=== PATIENT | female | born 1980 | race African-American/Black ===

== ENCOUNTER 2018-05-03 18:49 | Emergency (ER) | payer MEDICAID ==
[~2018-05-03] VITALS: Ht 172.7 cm; Wt 71.2 kg
[~2018-05-03 18:49] MED LIST: BACTRIM DS TAB1 EAC1 ORAL; IBUPROFEN800 MG ORAL; KEFLEX500 MG ORAL; NKM; TRAMADOL HCL50 MG ORAL
[2018-05-03] MEDS ORDERED: Azithromycin 250mg tab ORAL ONE (19:15)
[2018-05-03] MEDS ORDERED: Lidocaine 1% MPF 10mg/ml 5ml INJ ONE (19:15)
--- NOTE | 2018-05-03 19:20 | Emergency Room Report ---
History of Present Illness General Chief Complaint: Female Urogenital Problems Source: Patient Present Illness HPI 38-year-old female presents to the emergency department requesting treatment for STDs. Patient states that her partner is being treated for Chlamydia gonorrhea and she wants to be treated as well. Patient denies vaginal discharge , dysuria, external genital lesions, swollen tender lymph nodes, joint pain, fevers, chills or abdominal pain. Patient denies . Allergies: Coded Allergies: No Known Allergies (Unverified , 10/01/15) Patient History Past Medical History: see triage record Past Surgical History: none Pertinent Family History: none Last Menstrual Period: 04/22/18 Now: No : 3 Para: 1 Reviewed Nursing Documentation: PMH: Agreed; PSxH: Agreed Nursing Documentation-PMH Past Medical History: No History, Except For Review of Systems All Other Systems: negative except mentioned in HPI Physical Exam Vital Signs Date Time Temp Pulse Resp B/P (MAP) Pulse Ox O2 Delivery O2 Flow Rate FiO2 05/03/18 18:57 97.9 83 20 147/85 98 Room Air 97.9 Sp02 EP Interpretation: reviewed, normal General Appearance: no apparent distress, alert, GCS 15, non-toxic Head: normocephalic, atraumatic ENT: hearing grossly normal, normal voice Neck: full range of motion Respiratory: lungs clear, normal breath sounds, speaking full sentences Cardiovascular #1: regular rate, rhythm Gastrointestinal: non tender Genitourinary: normal inspection, no CVA tenderness, deferred - pelvic deferred. Musculoskeletal: back normal, gait/station normal, normal range of motion, non- tender Neurologic: alert, oriented x3, responsive, motor strength/tone normal, sensory intact, speech normal, grossly normal Psychiatric: judgement/insight normal Skin: normal color, no rash, warm/dry, well hydrated Medical Decision Making PA Attestation Dr. arroyo is my supervising Physician whom patient management has been discussed with. Diagnostic Impression: Primary Impression: Contact with or exposure to venereal diseases ER Course 38-year-old female presents to the emergency department requesting treatment for STDs. Patient states that her partner is being treated for Chlamydia gonorrhea and she wants to be treated as well. Patient denies vaginal discharge , dysuria, external genital lesions, swollen tender lymph nodes, joint pain, fevers, chills or abdominal pain. Patient denies . Ddx considered but are not limited to UTi , STI, G & C, trichomonas, Vaginitis , cervicitis, bartholins gland cyst or cellulitis. Vital signs: are WNL, pt. is afebrile H&PE are most consistent with contact or exposure to venereal diseases. ORDERS: - None at this time ED INTERVENTIONS: -250mg Rocephin IM -1G Azithromycin PO DISCHARGE: At this time pt. is stable for d/c to home. Will provide printed patient care instructions, and any necessary prescriptions. Care plan and follow up instructions have been discussed with the patient prior to discharge. Last Vital Signs Date Time Temp Pulse Resp B/P (MAP) Pulse Ox O2 Delivery O2 Flow Rate FiO2 05/03/18 18:57 97.9 83 20 147/85 98 Room Air 97.9 Disposition: HOME, SELF-CARE Condition: Stable Patient Instructions: Chlamydia, Female, [id number], Gonorrhea Additional Instructions: Refrain from intercourse for 5-7 days for antibiotics to take full effect. Follow up with a Primary Care Provider in 3-5 days, even if your symptoms have resolved. --Please review list of primary care clinics, if you do not already have a primary care provider Return sooner to ED if new symptoms occur, or current symptoms become worse. - Please note that this Emergency Department Report was dictated using [employer] technology software, occasionally this can lead to erroneous entry secondary to interpretation by the dictation equipment. Catherine Monroy May 03, 2018 19:20
[2018-05-03 19:43] VITALS: BP 147/85
== END 2018-05-03 19:43 | disposition home or self-care (01) ==
LOC: EMR 19:20
DX: Z20.2 Contact with and (suspected) exposure to infections with a predominantly sexual mode of transmission (principal)
CPT/HCPCS: 96372; 99283; J0696; Q0144

== ENCOUNTER 2018-07-08 19:56 | Emergency (ER) | payer MEDICAID ==
[~2018-07-08] VITALS: Ht 172.7 cm; Wt 71.2 kg
[2018-07-08 20:00] VITALS: BP 143/94
[2018-07-08] MEDS ORDERED: Lidocaine 1% MPF 10mg/ml 5ml INJ ONE (20:30)
[2018-07-08] MEDS ORDERED: Azithromycin 250mg tab ORAL ONE (20:30)
[2018-07-08 20:39] LABS: APPEARANCE,URINE CLEAR; BILIRUBIN, URINE NEGATIVE (NEGATIVE); COLOR,URINE PALE YELLOW; GLUCOSE, URINE (UA) NEGATIVE (NEGATIVE); KETONES,URINE NEGATIVE (NEGATIVE); LEUKOCYTE ESTERASE ,URINE NEGATIVE (NEGATIVE); NITRITE,URINE NEGATIVE (NEGATIVE); PH,URINE 6.5 (4.5-8.0); PROTEIN,URINE 1+ (NEGATIVE); UROBILINOGEN,URINE NORMAL (NORMAL)
[2018-07-08 20:58] VITALS: BP 143/94
--- NOTE | 2018-07-08 21:08 | Emergency Room Report ---
History of Present Illness General Chief Complaint: Female Urogenital Problems Source: Patient Present Illness HPI Patient has a history of STDs. Patient states that she is still with the same partner. Her partner is currently positive for gonorrhea and being treated. Patient wants treatment as well. Patient denies any fever chest pain shortness breath. She denies any vaginal discharges time. Denies any dysuria or urinary frequency. No other complaint are noted. No other modifying factors. No other associated signs and symptoms. No other complaints were noted. Allergies: Coded Allergies: No Known Allergies (Unverified , 07/08/18) Patient History Past Medical History: other - STD Past Surgical History: none Pertinent Family History: none Social History: Denies: smoking, alcohol use, drug use Last Menstrual Period: 06/23/2018 Now: No Reviewed Nursing Documentation: PMH: Agreed; PSxH: Agreed Nursing Documentation-PMH Past Medical History: No Stated History Review of Systems All Other Systems: negative except mentioned in HPI Physical Exam Vital Signs Date Time Temp Pulse Resp B/P (MAP) Pulse Ox O2 Delivery O2 Flow Rate FiO2 07/08/18 19:59 98.3 79 16 143/94 99 Room Air 98.2 Sp02 EP Interpretation: reviewed, normal General Appearance: normal inspection, well appearing, no apparent distress, alert Head: atraumatic Eyes: bilateral eye normal inspection ENT: normal ENT inspection, hearing grossly normal, normal voice Neck: normal inspection, full range of motion, supple, no bony tend Respiratory: normal inspection, lungs clear, normal breath sounds, no respiratory distress, no retraction, no wheezing Cardiovascular #1: regular rate, rhythm, no edema Gastrointestinal: normal inspection, normal bowel sounds, non tender, soft, no guarding, no hernia Genitourinary: no CVA tenderness Musculoskeletal: normal inspection, back normal, normal range of motion Neurologic: normal inspection, alert, responsive, speech normal Psychiatric: normal inspection, judgement/insight normal, mood/affect normal Skin: normal inspection, normal color, no rash Medical Decision Making Diagnostic Impression: Primary Impression: STD (female) ER Course Patient resistance emergency department today with history of STD and current exposure to STD. I felt that was reasonable treated patient. Patient urine test was negative for Trichomonas patient declined Flagyl. Patient's urine test was also negative. Patient was given one dose of Rocephin and Zithromax recommend close outpatient follow-up restraint from sexual interactionfor 2 weeks.Patient is advised to follow up with primary doctor in 2- 3 days and return the emergency room for any worsening symptoms and as needed. Labs Test 07/08/18 20:15 Urine Color Pale yellow Urine Appearance Clear Urine pH 6.5 (4.5-8.0) Urine Specific Adams 1.020 (1.005-1.035) Urine Protein 1+ (NEGATIVE) Urine Glucose (UA) Negative (NEGATIVE) Urine Ketones Negative (NEGATIVE) Urine Occult Blood Negative (NEGATIVE) Urine Nitrite Negative (NEGATIVE) Urine Bilirubin Negative (NEGATIVE) Urine Urobilinogen Normal MG/DL (NORMAL) Urine Leukocyte Esterase Negative (NEGATIVE) Urine RBC 0-2 /HPF (0 - 2) Urine WBC 0-2 /HPF (0 - 2) Urine Squamous Epithelial Cells Few /LPF (NONE/OCC) Urine Bacteria Few /HPF (NONE) Urine HCG, Qualitative Negative (NEGATIVE) Last Vital Signs Date Time Temp Pulse Resp B/P (MAP) Pulse Ox O2 Delivery O2 Flow Rate FiO2 07/08/18 20:58 98.2 78 16 143/94 99 Room Air 98.2 Status: improved Disposition: HOME, SELF-CARE Condition: Stable Patient Instructions: Gonorrhea Philip Roberts MD Jul 08, 2018 21:08
== END 2018-07-08 20:59 | disposition home or self-care (01) ==
LOC: EMR 20:35
DX: A64 Unspecified sexually transmitted disease (principal)
CPT/HCPCS: 81003; 81025; 96372; 99283; J0696; Q0144

== ENCOUNTER 2019-10-13 05:30 | Emergency (ER) | payer MEDICAID ==
[~2019-10-13] VITALS: Ht 172.7 cm; Wt 72.6 kg
[2019-10-13 05:40] VITALS: BP 120/78
--- NOTE | 2019-10-13 05:40 | NUR ---
ED Nurse Note: Pt walked in to ED C/O swelling to upper and lower lip since saturday morning. pt woke up ealier today with swelling to facial area. pt has vbeen taking benadryl at home. pt is alert x4.
--- NOTE | 2019-10-13 05:48 | Emergency Room Report ---
History of Present Illness General Chief Complaint: Allergic Reaction Source: Patient Present Illness HPI Patient presents with complaints of swelling of her facial area upper and lower eyelids lips Patient also felt that her hands have become more swollen initially had the symptoms yesterday morning She took some Benadryl it did appear to improve somewhat however this morning she feels that the swelling had worsened Denies any shortness of breath denies any difficulty breathing she does have itching of her hands and facial area Denies any chest pain denies any vomiting Allergies: Coded Allergies: No Known Allergies (Unverified , 07/08/18) Patient History Past Medical History: see triage record Last Menstrual Period: 09/26/19 Now: No : 3 Para: 1 Reviewed Nursing Documentation: PMH: Agreed; PSxH: Agreed Nursing Documentation-PMH Past Medical History: No Stated History Review of Systems All Other Systems: negative except mentioned in HPI Physical Exam Vital Signs Date Time Temp Pulse Resp B/P (MAP) Pulse Ox O2 Delivery O2 Flow Rate FiO2 10/13/19 05:34 98.2 96 19 117/78 (91) 98 Room Air Sp02 EP Interpretation: reviewed, normal General Appearance: well appearing, no apparent distress Head: normocephalic, atraumatic Eyes: bilateral eye PERRL, bilateral eye EOMI, bilateral eye other - Puffiness noted both upper and lower eyelids I cannot appreciate any swelling on the lips however subjectively patient does report sensation of swelling however no obvious, angioedema ENT: hearing grossly normal, normal pharynx, TMs + canals normal, uvula midline Neck: full range of motion, supple, no meningismus, no bony tend Respiratory: lungs clear, normal breath sounds, no rhonchi, no respiratory distress, no retraction, no accessory muscle use Cardiovascular #1: normal peripheral pulses, regular rate, rhythm, no edema, no gallop, no JVD, no murmur Gastrointestinal: normal bowel sounds, non tender, soft, no mass, no organomegaly, non-distended, no guarding, no hernia, no pulsatile mass, no rebound Genitourinary: no CVA tenderness Musculoskeletal: normal inspection Neurologic: oriented x3, responsive, evening sitter III-XII nml as tested, motor strength/ tone normal, sensory intact Psychiatric: mood/affect normal Skin: other - Facial swelling as noted above, I cannot appreciate any obvious edema in the hands or any other dermatitis Lymphatic: normal inspection, no adenopathy Medical Decision Making Diagnostic Impression: Primary Impression: Allergic reaction ER Course Patient appears to be having a reaction Unclear exactly the etiology of this denies any recent change in hair chemicals denies any Change in washing detergent she reports that she recently threw her bed frame out and was sleeping a little bit lower to the ground Patient otherwise has acute intervention performed in the ER with oral medications there continues not to be any Effect on the patient's airway and will have initial conservative outpatient trial Last Vital Signs Date Time Temp Pulse Resp B/P (MAP) Pulse Ox O2 Delivery O2 Flow Rate FiO2 10/13/19 05:34 98.2 96 19 117/78 (91) 98 Room Air Status: improved Disposition: HOME, SELF-CARE Condition: Improved Scripts Famotidine* (Pepcid 20mg tablet*) 20 Mg Tablet 20 MG ORAL DAILY, #12 TAB 0 Refills Prov: Shereen Connors DO 10/13/19 Diphenhydramine Hcl* (BENADRYL*) 25 Mg Capsule 25 MG ORAL Q6H PRN for Itching for 7 Days, CAP Prov: Shereen Connors DO 10/13/19 Methylprednisolone (Methylprednisolone*) 4MG Dspk 4 MG ORAL DIRECTED for 6 Days, #21 EA 0 Refills Day 1: Two tablets before breakfast, one after lunch, one after dinner, and two at bedtime. If started late in the day, take all six tablets at once or divide into two or three doses, unless otherwise directed by prescriber. Day 2: One tablet before breakfast, one after lunch, one after dinner, and two at bedtime Day 3: One tablet before breakfast, one after lunch, one after dinner, and one at bedtime Day 4: One tablet before breakfast, one after lunch, and one at bedtime Day 5: One tablet before breakfast and one at bedtime Day 6: One tablet before breakfast Prov: Shereen Connors DO 10/13/19 Additional Instructions: Patient is provided with the discharge instructions notified to follow up with primary doctor in the next 2-3 days otherwise return to the er with any worsening symptoms. Please note that this report is being documented using [employer] technology. This can lead to erroneous entry secondary to incorrect interpretation by the dictating instrument. Shereen Connors DO Oct 13, 2019 05:48
[2019-10-13] MEDS ORDERED: BENADRYL25 MG ORAL (05:49)
[2019-10-13] MEDS ORDERED: MEDROL DOSEPAK4 MG ORAL (05:49)
[2019-10-13] MEDS ORDERED: FAMOTIDINE20 MG ORAL (05:49)
[2019-10-13 06:00] VITALS: BP 118/80
--- NOTE | 2019-10-13 06:00 | NUR ---
ER DISCHARGE NOTE: Patient is cleared to be discharged per ERMD, pt is aox4, on room air, with stable vital signs. pt was given dc and prescription instructions, pt was able to verbalize understanding, pt id band removed without complications. pt is able to ambulate with steady gait. pt took all belongings.
== END 2019-10-13 06:00 | disposition home or self-care (01) ==
LOC: EMR 05:59
DX: T78.40XA Allergy, unspecified, initial encounter (principal); X58.XXXA Exposure to other specified factors, initial encounter
CPT/HCPCS: J7512; Z7502; 99282

== ENCOUNTER 2019-10-16 16:59 | Emergency (ER) | payer MEDICAID ==
[~2019-10-16] VITALS: Ht 172.7 cm; Wt 72.6 kg
[~2019-10-16 16:59] MED LIST changes: +BENADRYL25 MG ORAL; +FAMOTIDINE20 MG ORAL; +MEDROL DOSEPAK4 MG ORAL
--- NOTE | 2019-10-16 17:11 | NUR ---
Pt walked in to ED c/o hives and rash on bilateral hands and feet. Pt is alert and orientedx4. Pt denies numbness, tingling, and pain at the moment. O
[2019-10-16 17:12] VITALS: BP 148/87
[2019-10-16] MEDS ORDERED: ZYRTEC10 MG ORAL (17:24)
--- NOTE | 2019-10-16 17:32 | Emergency Room Report ---
History of Present Illness General Chief Complaint: General Complaint Source: Patient Present Illness HPI Disclaimer: Please note that this report is being documented using [employer] technology. This can lead to erroneous entry secondary to incorrect interpretation by the dictating instrument. HPI: 39-year-old female presents for evaluation of itching and facial swelling. She was seen in the emergency department 10/13 for an allergic reaction and similar symptoms. She was discharged on a steroid taper, famotidine, Benadryl with intermittent improvement in her symptoms. She states she has recurrent itching over the extremities without rash or urticaria. She noted intermittent swelling of her upper lip but currently denies. She denies any swelling of the tongue or throat and had no respiratory symptoms. She is most concerned over her persistent itching. Denies any excoriations, rash, bleeding. She has not yet followed up with her doctor. No history of allergies. Cannot recall a specific trigger allergen that she has recently been exposed to. She washed her linens, changed her detergent. No recent changes in her food patterns. No other symptoms reported. PMH: Denies PSH: Denies Allergies: None known Social Hx: Denies drug or alcohol abuse Allergies: Coded Allergies: No Known Allergies (Unverified , 07/08/18) Patient History Last Menstrual Period: 09/26/19 Nursing Documentation-PMH Past Medical History: No Stated History Review of Systems All Other Systems: negative except mentioned in HPI Physical Exam Vital Signs Date Time Temp Pulse Resp B/P (MAP) Pulse Ox O2 Delivery O2 Flow Rate FiO2 10/16/19 17:02 99.0 83 18 152/93 (112) 97 Room Air 10/16/19 17:12 97 General: Awake and alert, no acute distress HEENT: NC/AT. EOMI. no periorbital edema, no buccal edema, uvula is midline, no retropharyngeal edema, erythema. No wheezing or stridor. Neck: Supple, trachea midline Cardiovascular: RRR. S1 and S2 normal. No murmur appreciated Resp: Normal work of breathing. No cough, wheezing or crackles appreciated Abdomen: Abdomen is soft, nondistended. Nontender Skin: Intact. No abrasions, laceration or rash over the exposed skin MSK: Normal tone and bulk. Moving all extremities. No obvious deformity. Neuro: Awake and alert. Mentating appropriately. Medical Decision Making Diagnostic Impression: Primary Impression: Itching Additional Impression: Allergic reaction ER Course 39-year female presents for evaluation of persistent itching 3 days after she was diagnosed with an allergic reaction. She is currently taking and about to finish her steroid taper and continues to use Benadryl and famotidine. She states she has intermittent relief however the itching continues. She has no signs of anaphylaxis and is otherwise in her usual state of health. No evidence of angioedema, respiratory distress or any other significant pathology. We will add Zyrtec but at this time do not believe she requires any further emergent testing. She can follow-up with her PMD and schedule an appointment with an coder operator. Discussed reasons to return to the emergency department. She understands and agrees to the treatment plan. Last Vital Signs Date Time Temp Pulse Resp B/P (MAP) Pulse Ox O2 Delivery O2 Flow Rate FiO2 10/16/19 17:12 97.9 67 19 148/87 98 Room Air 10/16/19 17:12 97 Disposition: HOME, SELF-CARE Condition: Stable Scripts Cetirizine Hcl* (ZYRTEC*) 10 Mg Tablet 10 MG ORAL TID PRN for Itching for 5 Days, #20 TAB 0 Refills Prov: Jaden Flowers MD 10/16/19 Referrals: [facility] Patient Instructions: Pruritus Additional Instructions: Continue using the medication prescribed at your previous emergency department visit. Follow-up with your doctor on Saturday to discuss further allergy testing and to schedule an appointment for reevaluation. Return to the emergency department with any significant swelling or sudden worsening of symptoms. Jaden Flowers MD Oct 16, 2019 17:31
--- NOTE | 2019-10-16 17:42 | NUR ---
ER DISCHARGE NOTE: Patient is cleared to be discharged per ERMD, pt is aox4, on room air, with stable vital signs. pt was given dc and prescription instructions, pt was able to verbalize understanding, pt id band removed. pt is able to ambulate with steady gait. pt took all belongings.
== END 2019-10-16 17:43 | disposition home or self-care (01) ==
LOC: EMR 17:15
DX: L29.9 Pruritus, unspecified (principal); T78.40XA Allergy, unspecified, initial encounter; X58.XXXA Exposure to other specified factors, initial encounter
CPT/HCPCS: 99282